=== PATIENT | female | born 1955 | race Caucasian/White ===

== ENCOUNTER 2017-10-26 12:10 | Day surgery (SDC) | payer OTHER ==
[2017-10-26] MEDS ORDERED: LIDOCAINE 2% (SDV) 5 ML INJ (14:05)
[2017-10-26] MEDS ORDERED: PROPOFOL 40 ML (14:05)
== END 2017-10-26 17:03 | disposition home or self-care (01) ==
LOC: GIL 12:10
DX: Z12.11 Encounter for screening for malignant neoplasm of colon (principal); E11.9 Type 2 diabetes mellitus without complications; K29.30 Chronic superficial gastritis without bleeding
CPT/HCPCS: 43239; 82962; 88305; 88312; 88313

== ENCOUNTER 2017-11-07 06:14 | Day surgery (SDC) | payer OTHER ==
[2017-11-07] MEDS ORDERED: FENTAnyl 50 MCG/ML VIAL IV ×2 (07:00)
[2017-11-07] MEDS ORDERED: hydrALAzine 20 MG INJ IV (07:00)
[2017-11-07] MEDS ORDERED: MEPERIDINE 25 MG INJ IV (07:00)
[2017-11-07] MEDS ORDERED: morphine (1 MG/ML) 10ML SYRINGE IV ×3 (07:00)
[2017-11-07] MEDS ORDERED: MIDAZOLAM 1 MG/ML 2 ML INJ IV (07:00)
[2017-11-07] MEDS ORDERED: LABETALOL HCL 20MG INJ IV (07:00)
[2017-11-07] MEDS ORDERED: DIPHENHYDRAMINE 50 MG INJ IV (07:00)
[2017-11-07] MEDS ORDERED: EPHEDrine SULFATE 50 MG/5 ML SYG IV (07:00)
[2017-11-07] MEDS ORDERED: HYDROmorphONE (0.2 MG/ML) 10ML SYG IV ×3 (07:00)
[2017-11-07] MEDS ORDERED: ATROPINE 1 MG/10 ML SYRINGE IV (07:00)
[2017-11-07] MEDS ORDERED: ONDANSETRON 4 MG INJ IV (07:00)
[2017-11-07] MEDS ORDERED: OXYCODONE/ACETAMINOPHEN (5/325) TAB PO ×2 (07:00)
[2017-11-07] MEDS ORDERED: ONDANSETRON 4 MG INJ (07:24)
[2017-11-07] MEDS: SOD CHLORIDE 0.9% 1,000 ML IV (07:30)
[2017-11-07] MEDS ORDERED: TOBRAMYCIN 0.3% 3.5 GM OPH OINT (07:33)
[2017-11-07] MEDS ORDERED: EPINEPHrine 1 MG INJ (07:33)
[2017-11-07] MEDS ORDERED: LIDOCAINE 2% (SDV) 5 ML INJ (07:34)
[2017-11-07] MEDS ORDERED: LIDOCAINE 1% (MPF) 10 ML INJ (07:35)
[2017-11-07] MEDS ORDERED: SODIUM CL BACTERIOSTATIC 30 ML INJ (07:36)
[2017-11-07] MEDS: PHENYLephrine 2.5% 15 ML OPH OPER (07:40)
[2017-11-07] MEDS: PROPARACAINE 0.5% 15 ML OPH OPER (07:40)
[2017-11-07] MEDS: TROPICAMIDE 1% 3 ML OPH OPER (07:41)
[2017-11-07] MEDS: MOXIFLOXACIN 0.5% 3 ML OPH OPER (07:41)
[2017-11-07] MEDS: SODIUM HYALURONATE 14 MG/ML SYG IO ×2 (07:48→08:00)
[2017-11-07] MEDS ORDERED: BUPIVACAINE 0.75% (MPF) 10 ML INJ (07:55)
[2017-11-07] MEDS: PREDNISOLONE ACET 1% 5 ML OPH RIGHT EYE (08:10)
[2017-11-07] MEDS: EPINEPHRINE MC (08:30)
[2017-11-07] MEDS ORDERED: EPINEPHRINE MC (08:30)
[2017-11-07] MEDS ORDERED: LIDOCAINE 100 MG SYRINGE (09:31)
[2017-11-07] MEDS ORDERED: PROPOFOL 20 ML (09:31)
[2017-11-07] MEDS ORDERED: SODIUM HYALURONATE 14 MG/ML SYG IO (15:00)
== END 2017-11-07 10:55 | disposition home or self-care (01) ==
LOC: SDS 06:14
DX: H25.89 Other age-related cataract (principal); Z86.73 Personal history of transient ischemic attack (TIA), and cerebral infarction without residual deficits; E11.9 Type 2 diabetes mellitus without complications; E78.5 Hyperlipidemia, unspecified; I12.9 Hypertensive chronic kidney disease with stage 1 through stage 4 chronic kidney disease, or unspecified chronic kidney disease; N18.9 Chronic kidney disease, unspecified; G40.909 Epilepsy, unspecified, not intractable, without status epilepticus
CPT/HCPCS: 66984; 82962

== ENCOUNTER 2018-05-08 06:17 | Day surgery (SDC) | payer OTHER ==
[~2018-05-08 06:17] MED LIST: MOXIFLOXACIN 0.5% 3 ML OPH OPER; PHENYLephrine 2.5% 15 ML OPH OPER; PREDNISOLONE ACET 1% 5 ML OPH OPER; PROPARACAINE 0.5% 15 ML OPH OPER; SOD CHLORIDE 0.9% 1,000 ML IV; TROPICAMIDE 1% 3 ML OPH OPER
[2018-05-08] MEDS ORDERED: SOD CHLORIDE 0.9% 1,000 ML IV (07:00)
[2018-05-08] MEDS: CYCLOPENTOLATE/PHENYLEPH 2 ML OPH OPER (07:01)
[2018-05-08] MEDS: TROPICAMIDE 1% 3 ML OPH OPER (07:01)
[2018-05-08] MEDS: DICLOFENAC 0.1% 2.5 ML OPH OPER (07:01)
[2018-05-08] MEDS: MOXIFLOXACIN 0.5% 3 ML OPH OPER ×2 (07:01→10:25)
[2018-05-08] MEDS ORDERED: EPINEPHrine 0.1 MG/ML SYG (08:17)
[2018-05-08] MEDS ORDERED: DEXAMETHASONE 4 MG/ML 1 ML INJ (08:23)
[2018-05-08 08:24] LABS: ALANINE AMINOTRANSFERASE 37 IU/L (13-69); ALBUMIN 4.2 g/dl (3.3-4.9); ALKALINE PHOSPHATASE 73 IU/L (42-121); ANION GAP 8 (5-13); ASPARTATE AMINO TRANSFERASE 34 IU/L (15-46); BILIRUBIN,INDIRECT 0.3 mg/dl (0-1.1); BILIRUBIN,TOTAL 0.3 mg/dl (0.2-1.3); BLOOD UREA NITROGEN 31 mg/dl (7-20); CALCIUM 9.2 mg/dl (8.4-10.2); CARBON DIOXIDE 21 mmol/L (21-31); CHLORIDE 114 mmol/L (97-110); Estimated GFR 38 mL/min (>60); GLUCOSE 89 mg/dl (70-220); POTASSIUM 5.4 mmol/L (3.5-5.1); SODIUM 143 mmol/L (135-144); TOTAL PROTEIN 8.4 g/dl (6.1-8.1)
[2018-05-08] MEDS ORDERED: FENTAnyl 50 MCG/ML VIAL (08:38)
[2018-05-08] MEDS ORDERED: MIDAZOLAM 1 MG/ML 2 ML INJ (08:38)
[2018-05-08] MEDS ORDERED: hydrALAzine 20 MG INJ (09:06)
[2018-05-08] MEDS ORDERED: LIDOCAINE 2% (SDV) 5 ML INJ (09:20)
[2018-05-08] MEDS ORDERED: PROPOFOL 20 ML (09:20)
[2018-05-08] MEDS ORDERED: ONDANSETRON 4 MG INJ (09:24)
[2018-05-08] MEDS ORDERED: LABETALOL HCL 20MG INJ IV (09:30)
[2018-05-08] MEDS ORDERED: MEPERIDINE 25 MG INJ IV (09:30)
[2018-05-08] MEDS ORDERED: FENTAnyl 50 MCG/ML VIAL IV (09:30)
[2018-05-08] MEDS ORDERED: DIPHENHYDRAMINE 50 MG INJ IV (09:30)
[2018-05-08] MEDS ORDERED: ONDANSETRON 4 MG INJ IV (09:30)
[2018-05-08] MEDS ORDERED: hydrALAzine 20 MG INJ IV (09:30)
[2018-05-08] MEDS: CEFAZOLIN 1 GM INJ (09:31)
[2018-05-08] MEDS: DEXAMETHASONE 4 MG/ML 1 ML INJ INJ ×2 (09:31→10:23)
[2018-05-08] MEDS: EPINEPHrine 1 MG INJ (09:31)
[2018-05-08] MEDS: LIDOCAINE 4% (MPF) 5 ML INJ (09:31)
[2018-05-08] MEDS: GENTAMICIN 80 MG INJ (10:24)
[2018-05-08] MEDS: NA HYALURONATE/CHONDROITIN 0.5 ML SYG (10:26)
[2018-05-08] MEDS: CARBACHOL 0.01% 1.5 ML OPH INJ (10:29)
== END 2018-05-08 10:57 | disposition home or self-care (01) ==
LOC: SDS 06:17
DX: H25.12 Age-related nuclear cataract, left eye (principal); I12.9 Hypertensive chronic kidney disease with stage 1 through stage 4 chronic kidney disease, or unspecified chronic kidney disease; N18.9 Chronic kidney disease, unspecified; E11.8 Type 2 diabetes mellitus with unspecified complications; E78.5 Hyperlipidemia, unspecified; K73.9 Chronic hepatitis, unspecified; Z86.73 Personal history of transient ischemic attack (TIA), and cerebral infarction without residual deficits
CPT/HCPCS: 66984; 80053; 82962